=== PATIENT | female | born 1980 | race African-American/Black ===

== ENCOUNTER 2023-08-05 09:56 | Emergency (ER) | payer OTHER ==
[2023-08-05] MEDS ORDERED: Acetaminophen 500 MG TAB ONE (12:47)
[2023-08-05] MEDS ORDERED: Lisinopril 10 MG TAB ONE (12:48)
[2023-08-05] MEDS ORDERED: cloNIDine 0.1 MG TAB ONE (13:31)
== END 2023-08-05 14:19 | disposition home or self-care (01) ==
LOC: ERS 09:56
DX: M79.642 Pain in left hand (principal); F17.210 Nicotine dependence, cigarettes, uncomplicated; Y04.8XXA Assault by other bodily force, initial encounter

== ENCOUNTER 2023-08-19 16:20 | Emergency (ER) | payer BC ==
[2023-08-19 19:55] LABS: #Basophils 0.05 10x3/uL (0.0-0.2); %Basophils 0.6 % (0.0-1.0); %Eosinophils 1.2 % (0.0-10.0); %Lymphocytes 44.1 % (21.0-51.0); %Monocytes 6.1 % (0.0-10.0); %Neutrophils 47.7 % (42.0-75.0); Hematocrit 33.7 % (36.0-47.0); Hemoglobin 10.7 g/dL (12.0-16.0); Mean Corpuscular HGB CONC 31.8 g/dL (32.0-36.0); Mean Corpuscular Volume 94.4 fL (78.0-98.0); Mean Platelet Volume 10.4 fL (7.4-10.4); Platelet Count 261 10x3/uL (130-400); RBC Distribution Width 16.9 % (11.5-14.5); Red Blood Cell (RBC) Count 3.57 mill/uL (4.20-5.40)
[2023-08-19 20:19] LABS: ALT (SGPT) 12 U/L (8-55); AST (SGOT) 26 U/L (5-34); Albumin 3.6 g/dL (3.5-5.0); Alkaline Phosphatase 35 U/L (40-110); Anion Gap 16 mmol/L (10-20); BUN (Urea Nitrogen) 17 mg/dL (7.0-18.7); Bilirubin, Total 0.2 mg/dL (0.2-1.2); Calc. Creatinine Clearance 0 mL/min (70-130); Calcium 8.3 mg/dL (7.8-10.44); Carbon Dioxide 15 mmol/L (22-29); Chloride 114 mmol/L (98-107); Estimated GFR 38; Globulin 3.5 g/dL (2.4-3.5); Glucose 82 mg/dL (70-105); Potassium 4.2 mmol/L (3.5-5.1); Protein, Total 7.1 g/dL (6.0-8.3); Sodium 141 mmol/L (136-145)
[2023-08-19] MEDS ORDERED: hydrALAZINE 20 MG/ML VIAL ONE (20:23)
[2023-08-19] MEDS ORDERED: Acetaminophen 325 MG TAB ONE (20:23)
[2023-08-19] MEDS ORDERED: diphenhydrAMINE 50 MG/ML VIAL ONE (20:23)
[2023-08-19] MEDS ORDERED: Fioricet 325/50/40 mg Tablet ONE (20:24)
[2023-08-19 20:25] LABS: Troponin I 0.015 ng/mL (< 0.028)
[2023-08-19 20:28] LABS: Acetaminophen Less than 10 mcg/mL (10.0-30.0); Alcohol Less than 10.0 mg/dL (Less than 10); Salicylate 33.8 mg/dL (15.0-30.0)
[2023-08-19 22:19] LABS: Bacteria/HPF None Seen HPF (None Seen); Bilirubin Negative (Negative); Blood, Urine 1+ (Negative); CAUTI Indications for Culture Pelvic or flank pain; Clarity Clear (Clear); Glucose, Urine (Dipstick) Normal (Negative); Ketone, Urine Negative (Negative); Leukocyte Negative Leu/uL (Negative); Nitrite Negative (Negative); Protein, Urine (Dipstick) Negative (Neg-Trace); RBC/HPF 0-3 HPF (0-3); Specific Gravity, Urine 1.015 (1.002-1.036); Squamous Epithelial 0-3 HPF (0-3); Urobilinogen Normal mg/dL (Less than 2); WBC/HPF 0-3 HPF (0-3); pH, Urine 5.5 (5.0-9.0)
[2023-08-19 22:25] LABS: Amphetamine Not Detected (NotDetected); Barbiturates Screen Detected (NotDetected); Benzodiazepine Screen Not Detected (NotDetected); Cocaine Metabolite Screen Not Detected (NotDetected); Methadone Not Detected (NotDetected); Methamphetamine Not Detected (NotDetected); Opiate Screen Not Detected (NotDetected); Oxycodone Screen Not Detected (NotDetected); Phencyclidine (PCP) Not Detected (NotDetected); THC/Cannabinoid Screen Detected (NotDetected); Tricyclic Screen Not Detected (NotDetected)
[2023-08-19 22:42] LABS: Pregnancy Test - Urine (BHCG) Negative (Negative); Pregu Control Background? CLEAR/WHITE (CLR/WHITE); Pregu Control Bar Appear? YES (CONTROL BAR); Urine Culture Reflex No No
[2023-08-19 22:43] LABS: Specific Gravity 1.015 (1.002-1.036)
[2023-08-19] MEDS ORDERED: Ketorolac Tromethamine 30 MG (1 mL) VIAL ONE (22:57)
== END 2023-08-19 22:59 | disposition home or self-care (01) ==
LOC: ERS 16:20
DX: S06.0XAA Concussion with loss of consciousness status unknown, initial encounter (principal); F17.210 Nicotine dependence, cigarettes, uncomplicated; I10 Essential (primary) hypertension; Z55.6 Problems related to health literacy; W22.8XXA Striking against or struck by other objects, initial encounter
CPT/HCPCS: 36415; 70450; 71045; 80053; 80306; 80307; 81001; 81025; 84484; 85025; 93005; 96374; 96375; J0360; J1200; J1885